=== PATIENT | female | born 1990 | race Caucasian/White ===

== ENCOUNTER → 2024-10-02 14:44 | Outpatient (REF) | payer BC, SELFPAY | LOC: HWRAD 14:44 | PROVIDERS: ATTENDING PHYSICIAN Family Medicine Sports Medicine | DX: R51.9 Headache, unspecified (principal) | CPT/HCPCS: 70450 ==

== ENCOUNTER 2025-01-03 03:58 | Emergency (ER) | payer BC, SELFPAY ==
[2025-01-03 04:07] VITALS: BP 138/102
[2025-01-03 04:31] VITALS: BP 125/90; BMI 22.3
[2025-01-03] MEDS: PEPCID 40 MG PO (04:34)
[2025-01-03] MEDS: DECADRON 10 MG PO (04:34)
[2025-01-03 05:00] VITALS: BP 117/83
--- NOTE | 2025-01-03 05:35 | ED.GENMED ---
History of Present Illness
General
Chief Complaint: Allergic Reaction
Source: patient
Exam Limitations: none
Time Seen by Provider: 01/03/25 04:19
Nursing documentation reviewed up to this point in time: agreed with
History of Present Illness
History of Present Illness:
Note:
CHIEF COMPLAINT(S)
Swelling and itching.
HISTORY OF PRESENT ILLNESS
The patient is a 34-year-old female who reports experiencing significant swelling and itching starting Monday night, which worsened by Monday night. The patient describes her lips as swollen, and there is swelling on her leg and chest. She also
noted having swelling in the bikini line area under her underwear. The swelling was severe enough that she presented to urgent care on Monday and was prescribed a steroid treatment. She started the medication and felt relief from itching but
experienced a recurrence of symptoms including chest discomfort and lip swelling when she went to bed. The symptoms were described as a systemic reaction, potentially related to something in her bedroom or contact dermatitis. The patient mentioned
using a new salad wrap on Monday but denied any new detergents, perfumes, clothes, lotions, or foods aside from the wrap. She also recently received Botox for the first time on Monday. The patient lives with two dogs that sleep on the bed, and her
spouse shares the same bed but has not experienced similar symptoms.
SOCIAL DETERMINANTS AFFECTING HEALTH
The patient is a [id number] mother and owns two dogs that sleep on her bed.
MEDICATIONS
The patient is currently taking Nortriptyline for migraine headaches.
REVIEW OF SYSTEMS
- Dermatologic: Swelling and itching on lips, leg, chest, and bikini line.
- Gastrointestinal: No issues reported.
- Respiratory: Chest discomfort.
PHYSICAL EXAM
- Dermatologic: Observation of swelling around lips, chest, and legs.
- Nursing notes reviewed and vital signs reviewed.
PLAN
- Administered decadron liquid and Pepsid, both types of histamine blockers, in the emergency department.
- Advised the patient to continue with her current steroid prescription.
- Recommended relocation to another sleeping area to assess for potential allergens or irritants in the current bedroom environment.
- Advised observing the symptoms, especially after changing the sleeping environment.
- Suggested taking a bath or shower after returning home.
DIFFERENTIAL DIAGNOSIS
The differential diagnosis includes, in no particular order and is not limited to:
1. Allergic Reaction
2. Contact Dermatitis
3. Angioedema
4. Urticaria
5. Systemic Allergic Reaction
6. Drug Reaction (potentially from new medication or Botox)
7. Environmental Allergens
8. Food Allergy
9. Insect Bites
10. Idiopathic Anaphylaxis
Disposition:
SUMMARY OF ENCOUNTER
The patient, a 34-year-old female, presented to the emergency department with a recurrence of an allergic reaction initially treated at urgent care with steroids. The initial reaction had subsided but returned upon later entering her bed. The
potential allergen was suspected to be in her sleeping environment. In the emergency department, she was advised to avoid her bed to prevent further reactions.
DISPOSITION
Discharge.
ASSESSMENT
Recurrence of allergic reaction possibly related to an environmental allergen in the sleeping area.
EMERGENCY TREATMENTS ADMINISTERED
The patient received famotidine (Pepcid) and dexamethasone (Decadron) burst. She was advised to hold prednisone for a day and administered an epinephrine dose. She was also advised to take diphenhydramine (Benadryl) upon returning home.
PLAN
The patient was advised to continue her prednisone regimen starting the following day and to follow up with an junior high school teacher for further evaluation of potential allergens. She was instructed on return precautions and steps to avoid potential allergens
in her sleeping environment.
PATIENT EDUCATION AND COUNSELING
The patient was informed about the importance of avoiding her current sleeping environment to determine if it is the source of the allergen. She received instructions on when to return to the emergency department if symptoms worsen or dont improve,
and the critical role of follow-up with an junior high school teacher.
FOLLOW-UP INSTRUCTIONS
The patient will receive contact information for an junior high school teacher for further follow-up.
MEDICATION RECONCILIATION
The patient was advised to continue prednisone starting tomorrow. Famotidine, dexamethasone, and diphenhydramine were administered or recommended, respectively, during this encounter.
MEDICAL DECISION MAKING
- Number and Complexity of Problems Addressed: Chronic conditions affecting care include potential allergens in the sleeping environment and recurrence of systemic allergic reactions.
- Data:
- Category 1: The clinical information was obtained from discussing the recurrence of symptoms and its potential triggers, specifically from the sleeping environment.
- Risk: Prescription medication was prescribed. Care was significantly affected by the potential environmental allergen in her bedroom.
DIAGNOSIS
- T78.40XA - Allergy, unspecified, initial encounter.
Past History
Past History
ED Past Medical History: Asthma and Other (Preeclampsia and help syndrome with previous )
ED Past Surgical History: and Other
Social History
Tobacco: Non-smoker
Alcohol: Occasional
Personal:
Living: with family
Employment: Employed
Family History
Family History: Negative Diabetes, Hypertension or CAD
Phy Exam
General Physical Exam
General Presentation: well appearing and no apparent distress
General Skin: warm and dry
General Habitus: normal
General Mental: alert
General Hydration: appears well hydrated
ENT Exam
ENT Exam: EOMI, pharynx normal, neck supple and normocephalic
Eye Exam
Eye Exam: PERRL, cornea clear and conjunctiva normal
Cardiovascular Exam
Cardiovascular Exam: regular rate/rhythm, no edema, no murmur and normal peripheral pulses
Pulmonary Exam
Pulmonary Exam: lungs clear, no respiratory distress, no rales, no crackles, no rhonchi, no stridor, no wheezing and no cough
Gastrointestinal Exam
Gastrointestinal Exam: normal bowel sounds, non tender, soft, no organomegaly, no pulsatile mass and non distended
Neurological Exam
Neurological Exam: alert, oriented x3, no motor deficits and speech normal
Musculoskeletal Exam
Musculoskeletal Exam: full ROM and no edema
Skin Exam
Skin Exam: other (Urticaria diffusely following no specific pattern on the legs upper extremities torso and back. No oral mucosal involvement.)
Psychiatric Exam
Psychiatric Exam: normal mood/affect
Course
Orders/Labs/Results
Orders:
Orders
01/03/25 04:00
EKG [Electrocardiogram (*1)] Urgent
Reason for Study: Chest Pain
01/03/25 04:01
EKG- Treatment ONCE
01/03/25 04:29
Dexamethasone Pf [Decadron] 10 mg PO NOW STA
Famotidine [Pepcid] 40 mg PO NOW STA
Vital Signs
Initial and Last Documented VS:
Initial Vital Signs
Temp Pulse Resp BP Pulse Ox
98.6 F 89 16 138/102 100
01/03/25 04:07 01/03/25 04:07 01/03/25 04:07 01/03/25 04:07 01/03/25 04:07
Last Documented Vital Signs
Temp Pulse Resp BP Pulse Ox
98.6 F 72 16 117/83 99
01/03/25 04:07 01/03/25 05:00 01/03/25 05:00 01/03/25 05:00 01/03/25 05:00
*Pulse Oximetry
SaO2: 99
Oxygen Mode of Delivery: Room air
Patient hypoxic: no
*Critical Care Note
Total Time (30-74mins, 75-104mins- exclusive of procedures): Not Applicable
Update Note
Update Note:
EKG shows normal sinus rhythm rate of 95 normal intervals, normal axis. No evidence of acute urine no old EKG available for comparison.
ED Attending Note
-
Portions of this chart may have been created with voice recognition software.� Occasional wrong word or��sound alike� substitutions may have occurred due to the inherent limitations of voice recognition software.
Discharge Plan
Departure
Patient Disposition: Home (Routine Discharge)
Date of Disposition: 01/03/25
Time of Disposition: 05:37
Patient with high blood pressure during this ER visit?: No
Condition: Good
Discharge Problem:
Allergic reaction
Instructions: Hives (DC), Allergic reaction - ED discharge instructions
Prescriptions:
New
epinephrine [EpiPen] 0.3 mg/0.3 mL Auto-Injector
0.3 mg IM .STAT PRN (Reason: anaphylaxis) Qty: 1 0RF
No Action
Vitamin 1 EACH tablet
1 tab PO DAILY
acetaminophen 325 mg Tablet
650 mg PO Q4HPRN PRN (Reason: mild pain) Qty: 0 0RF
ibuprofen 600 mg Tablet
600 mg PO Q6HPRN PRN (Reason: cramps) Qty: 0 0RF
Referrals:
Ernst Aguilar DO [Family Provider, Family Practice]
Activity Restrictions/Additional Instructions:
Thank You for choosing [facility].
It was a pleasure meeting you and taking part in your care. We hope for your continued healing and wellness.
Please read discharge instructions in their entirety. However, they are for general education and may not describe your exact diagnosis at discharge. Information on your ER visit and medical conditions were discussed with you along with appropriate
follow up information...
If indicated, please take your medications as instructed and indicated on discharge paperwork.
Please schedule a follow up appointment as directed. Call to schedule an appointment
Please return to the emergency department with ANY change in, persisting, or worsening of symptoms. If any of your symptoms do not improve, or persist, or become more severe within 6-12 hours, please return to the emergency department for further
care.
Please return to the emergency department if you develop a headache, neck pain/stiffness, fever greater than 100.4F, chest pain, shortness of breath, persistent nausea, vomiting, slurred speech, difficulty walking, numbness/tingling, weakness, signs
of infection or any other symptoms that are worrisome to you.
If you have any questions or concerns please do not hesitate to call the Hospital at or E-mail me directly at [email or web address]
Interventions
Interventions:
*Risk Screen - Suicide Last Done: 01/03/25 04:07
*General Assessment Last Done: 01/03/25 04:07
*Neglect/Abuse Screening Last Done: 01/03/25 04:07
*ED- Fall Risk Assessment Last Done: 01/03/25 04:07
*ED COVID-19 Vaccine History Last Done: 01/03/25 04:07
ED- Cardiac Assessment Last Done: 01/03/25 04:25
ED- Pulmonary Assessment Last Done: 01/03/25 04:25
ED-Skin Assessment Last Done: 01/03/25 04:25
Discharge Date and Time
Print Language: MALAGASY
== END 2025-01-03 05:51 | disposition home or self-care (01) ==
LOC: EMR 03:58
PROVIDERS: EMERGENCY PHYSICIAN Student in an Organized Health Care Education/Training Program; FAMILY PHYSICIAN Family Medicine Sports Medicine
DX: T78.40XA Allergy, unspecified, initial encounter (principal); Y92.9 Unspecified place or not applicable; J45.909 Unspecified asthma, uncomplicated; Z79.52 Long term (current) use of systemic steroids; Z87.59 Personal history of other complications of pregnancy, childbirth and the puerperium
CPT/HCPCS: 99283; 93005